=== PATIENT | male | born 1985 | race Caucasian/White ===

== ENCOUNTER 2023-11-03 12:32 | Outpatient (CLI) | payer OTHER, SELFPAY | END 2023-11-03 12:33 | disposition home or self-care (01) | LOC: LKVREF 12:32 | PROVIDERS: PCP Family Medicine; Visit Provider Emergency Medicine | DX: J02.9 Acute pharyngitis, unspecified (principal) | CPT/HCPCS: 86140 ==

== ENCOUNTER 2025-02-13 11:08 | Outpatient (CLI) | payer OTHER, SELFPAY | END 2025-02-13 11:09 | disposition home or self-care (01) | PROVIDERS: PCP Family Medicine; Visit Provider Family Medicine | DX: R13.10 Dysphagia, unspecified (principal); R19.4 Change in bowel habit; R53.83 Other fatigue; R63.5 Abnormal weight gain; Z13.220 Encounter for screening for lipoid disorders | CPT/HCPCS: 80053; 80061; 84443 ==

== ENCOUNTER 2025-08-15 08:00 | Outpatient (CLI) | payer OTHER, SELFPAY | END 2025-08-15 08:01 | disposition home or self-care (01) | LOC: NFLDREF 08-16 10:34 | PROVIDERS: PCP Family Medicine; Referring Provider Family Medicine; Visit Provider Family Medicine | DX: R53.83 Other fatigue (principal); K59.00 Constipation, unspecified; Z78.9 Other specified health status | CPT/HCPCS: 80053; 82533; 82607; 84270; 84402; 84403; 84443 ==

== ENCOUNTER 2025-08-23 09:58 | Outpatient (CLI) | payer OTHER, SELFPAY ==
--- NOTE | 2025-08-23 10:15 | CRLHL7_ITS ---
For Patients: As a result of the Century Cures Act, medical imaging exams and procedure reports are released immediately into your electronic medical record. You may view this report before your referring provider. If you have questions, please contact your health care provider. INDICATION: Dysphagia, oropharyngeal phase TECHNIQUE: Modified barium swallow. Fluoroscopic time 59 seconds. FINDINGS/IMPRESSION: Anatomical structures are normal. Swallowing mechanism appears within normal limits. No episodes of penetration or aspiration. No significant findings. Dictated by Alessandro Charles MD @ 08/23/2025 10:54:50 AM (Electronically Signed)
--- NOTE | 2025-08-23 14:20 | SLP.MBS ---
LINE MECHANIC Modified Barium Swallow LINE MECHANIC Modified Barium Swallow Eval Start: 08/23/25 09:54 Text: Status: Active Freq: Protocol: Document 08/23/25 09:54 KRISTEN (Rec: 08/23/25 14:09 KRISTEN [id number]) E-signed By MAE Gimenez Modified Barium Swallow Evaluation Evaluation Reason for Referral Patient complains of food occasionally sticking in the back of his mouth. Medical Diagnosis Oropharyngeal dysphagia R13.12 Treatment Diagnosis Oropharyngeal dysphagia R13.12 Date of Order 04/20/25 Type of Referral Evaluation Onset of Patient's Approximately one year. Problem Pertinent Medical Per provider note, This started about 1 year ago. He History intermittently has trouble swallowing solids. No trouble swallowing liquids. Denies pain with swallowing . Sometimes it could be knots, noodles, meat. Does not necessarily happen every day but happens a few times per week. Drinking some kind of liquid helps push it to the back of his throat and he feels better. He reports he does stay well hydrated. He did have this evaluated at [facility] in March where they did an upper endoscopy. He reports this came back normal. Patient has been on phentermine for the past 6 months or so for weight loss with success. He has been decreasing his dose to get off of it and it has been getting shaky sometimes. He denies coughing fits. But sometimes if he has a big cough it will bring up a small amount of food. Denies shortness of breath. He does find himself throat clearing more often. Overall he describes a sensation that it feels like a clump of food gets stuck right at the base of his tongue and that he needs liquids to get it to the back of his throat. He is currently building a shed at his house and this is going fine, no signs of muscle weakness. He does have a swallow study tomorrow which was ordered through his primary care provider. Does not feel like he has an acid stomach. Tanner had an EGD 02/2025 which was WNL. ENT consult yesterday with the following findings: Septum and turbinates visualized on left and right sides, show minor left septal deviation. Lingual tonsils do look slightly enlarged. Posterior nasopharynx within normal limits. Adenoid visualized. Epiglottis and glottis are visualized. Normal movement of vocal cords. No signs of mass. Hearing Status WNL Vision Status WNL Subjective/Pain Patient complains of food occasionally getting caught Comment at the back of the tongue. Denies reflux, heartburn, chest pain, polly changes or nausea or vomiting. Assessment/ Tanner is a 40-year-old male with complaints of food Impressions occasionally sticking in the back of his mouth for about a year. A video swallow study was completed per provider orders. Under fluoroscopy, patient presents with a functional oropharyngeal swallow. Oral phase of the swallow remains intact. Pharyngeal phase is functional with trace to minimal residue in the vallecula that is cleared with multiple swallows. Recommend a Regular diet with thin liquids. Safe swallow strategies include upright for all po and remain upright 30 minutes after meals, small bites at a slow rate, small single sips and alternate liquids and soilds every few bites. No further speech therapy indicated. Goals/Functional Frank will verbalize understanding of today's results Outcomes and recommendations. Goal met. Mod Barium Swallow-Lat View Textures Lateral View Food Thin: IDDSI Level 0,Pureed,Regular Presentation Oral Phase Labial Closure No Impairment (WFL) Bolus Formation No Impairment (WFL) Pooling L/R Bolus Formation No Impairment (WFL) under Tongue Bolus Formation No Impairment (WFL) Scattered Loss Mastication Rotary No Impairment (WFL) Chew Lingual Movement No Impairment (WFL) Residue Clearing No Impairment (WFL) Pharyngeal Phase Swallow Response No Impairment (WFL) Delay Base of Tongue No Impairment (WFL) Epiglottic Coverage No Impairment (WFL) Laryngeal Elevation No Impairment (WFL) Vallecular Retention Minimal Impairment Clearing Pharyn. Wall Residue No Impairment (WFL) Clearing Piriform Sinus No Impairment (WFL) Retention Mod Barium Swallow-A/P View Performed Mod Barium Swallow A Performed /P View Test Textures A/P View Food Thin: IDDSI Level 0 Presentation Observations A/P View Residue Valleculae Right,Valleculae Left Observed A/P View Esophogeal No Impairment (WFL) Function Mod Barium Swallow Impressions Summary and Impressions Oral Phase No Impairment (WFL) Impression Oral Phase Summary Lip closure for intraoral bolus containment and tongue control during bolus hold were functional. Bolus preparation and mastication demonstrated functional. Bolus transport/lingual motion was adequate for liquids and solids. There was no oral residue collected along oral structures. Initiation of the pharyngeal swallow occurred as the bolus head was at the vallecula. Soft palate elevation was adequate with no trace column of contrast or air between the soft palate and the pharyngeal wall. Pharyngeal Phase No Impairment (WFL) Impression Pharyngeal Phase Laryngeal elevation was adequate. Anterior hyoid Summary excursion demonstrated adequate movement. Epiglottic movement resulted in full inversion. Laryngeal vestibular closure was adequate, resulting in no column of air/contrast within the laryngeal vestibule at the height of the swallow. Pharyngeal stripping wave was present and adequate. Pharyngeal contraction resulted in adequate clearing. Pharyngoesophageal segment opening demonstrated adequate distention, with no obstruction of bolus flow. Tongue base retraction allowed a no column of contrast or air between the retracted tongue base and the posterior pharyngeal wall . Pharyngeal residue was trace to minimal in the vallecula. Esophogeal Phase No Impairment (WFL) Impression Esophogeal Phase Esophageal clearance in the upright position resulted Summary in no retention. Barium Swallow Recommendations Diet Dietary Regular,Thin Liquids Recommendations Treatment/Strategies Strategy/Precaution Sitting Upright (90 deg),Double Swallow,Small Bites and Recommend Sips,Alternate Liquids/Solids Modified Barium Swallow Education Education Topics Teaching Recipient Patient Teaching Methods Verbal Response to Teaching Verbalize Understanding Therapist Signature/ Steve Borden MS CCC-LINE MECHANIC #[id number] License Number Speech/Language Pathology Billing Units Billing Units Eval Swallow Motion 1 Fluoro
== END 2025-08-23 09:59 | disposition home or self-care (01) ==
PROVIDERS: PCP Family Medicine; Visit Provider Family Medicine
DX: R13.12 Dysphagia, oropharyngeal phase (principal)
CPT/HCPCS: 74230; 92611